=== PATIENT | male | born 1995 | race African-American/Black ===

== ENCOUNTER 2021-01-14 09:45 | Emergency (ER) | payer SELFPAY ==
[~2021-01-14] VITALS: Ht 170.2 cm; Wt 73.0 kg
[2021-01-14 09:54] VITALS: BP 118/76
[2021-01-14] MEDS ORDERED: PANT40SU PO (11:19)
[2021-01-14] MEDS ORDERED: MAG355OR21 MT (11:20)
[2021-01-14] MEDS ORDERED: ACET325T52 MT (11:21)
[2021-01-14] MEDS ORDERED: IBUP-2028 MT (11:22)
== END 2021-01-14 15:28 | disposition home or self-care (01) ==
LOC: ER 09:45
DX: R10.9 Unspecified abdominal pain (principal); R51.9 Headache, unspecified
CPT/HCPCS: 99281

== ENCOUNTER 2021-08-26 08:37 | Emergency (ER) | payer MEDICAID ==
[~2021-08-26] VITALS: Ht 177.8 cm; Wt 73.0 kg
[~2021-08-26 08:37] MED LIST: ACET325T52 MT; IBUP-2028 MT; MAG355OR21 MT; PANT40SU PO
[2021-08-26] MEDS ORDERED: PANTOPRAZOLE SODIUM 40 MG/VIAL IV STA (11:42)
[2021-08-26] MEDS ORDERED: MAGNESIUM/ALUMINUM HYDROXIDE/SIMETHICONE 30ML UDC PO STA (11:42)
[2021-08-26] MEDS ORDERED: SODIUM CHLORIDE 0.9% 1,000 ML IV ONE (11:45)
[2021-08-26] MEDS ORDERED: ONDANSETRON HCL 4MG/2ML INJ IV ONE (11:45)
[2021-08-26 12:00] LABS: BASOPHILS % 0.4 % (0.0-2.0); EOSINOPHILS % 0.4 % (0.0-5.0); HEMATOCRIT. 33.2 % (42.0-52.0); HEMOGLOBIN. 10.7 g/dL (14.0-18.0); LYMPHOCYTES % 20.9 % (20.0-50.0); MEAN CORPUSCULAR HEMOGLOBIN 30.4 pg (28.0-32.0); MEAN CORPUSCULAR VOLUME 94.5 fL (80.0-94.0); MEAN PLATELET VOLUME 8.8 fl (7.4-10.4); MONOCYTES % 5.2 % (2.0-8.0); NEUTROPHILS % 73.1 % (40.0-76.0); PLATELET 290 x1000/uL (130-400); RED BLOOD CELL COUNT 3.52 mill/uL (4.7-6.1); RED CELL DISTRIBUTION WIDTH 12.9 % (11.6-14.6)
[2021-08-26 12:07] LABS: CHLORIDE 101 mEq/L (98-107)
[2021-08-26 12:25] LABS: ETHANOL BLOOD < 10 mg/dL
[2021-08-26] MEDS ORDERED: KETOROLAC 15MG/ML VIAL IV ONE (14:00)
[2021-08-26 16:31] VITALS: BP 112/70
== END 2021-08-26 16:54 | disposition home or self-care (01) ==
LOC: ER 08:37
DX: K92.0 Hematemesis (principal); J45.909 Unspecified asthma, uncomplicated; Z98.890 Other specified postprocedural states
CPT/HCPCS: 36415; 71045; 74176; 80053; 80320; 82962; 83690; 85025; 85379; 86850; 86900; 86901; 93005; 96360; 99285; J7030; G0480